=== PATIENT | female | born 2000 | race Caucasian/White ===

== ENCOUNTER 2020-04-12 18:36 | Outpatient (CLI) | payer OTHER | END 2020-04-12 20:19 | disposition home or self-care (01) | LOC: GENOP 18:36 | PROVIDERS: Obstetrics & Gynecology | DX: O99.891 Other specified diseases and conditions complicating pregnancy (principal); R10.9 Unspecified abdominal pain; M54.9 Dorsalgia, unspecified; Z3A.26 26 weeks gestation of pregnancy | CPT/HCPCS: 80307; G0463 ==

== ENCOUNTER 2020-06-18 21:04 | Outpatient (CLI) | payer OTHER | END 2020-06-18 23:25 | disposition home or self-care (01) | LOC: GENOP 21:04 | DX: O99.891 Other specified diseases and conditions complicating pregnancy (principal); R42 Dizziness and giddiness; R51.9 Headache, unspecified; H53.9 Unspecified visual disturbance; Z3A.36 36 weeks gestation of pregnancy | CPT/HCPCS: G0463 ==

== ENCOUNTER 2020-07-09 16:24 | Inpatient (IN) | payer OTHER ==
[~2020-07-09] VITALS: Ht 167.6 cm; Wt 85.7 kg
[2020-07-09 17:04] LABS: RED BLOOD COUNT 4.4 M/UL (4.00-5.10); WHITE BLOOD COUNT 12.8 K/UL (4.5-11.0)
[2020-07-09] MEDS ORDERED: RA PRENATAL TA1 EACH PO (17:52)
[2020-07-10] MEDS ORDERED: COLACE 100MG C100 MG PO (14:32)
[2020-07-10] MEDS ORDERED: IBUPROFEN600 MG PO (14:32)
[2020-07-11 06:27] LABS: HEMOGLOBIN 10.7 gm/dl (12.3-15.3)
== END 2020-07-12 17:33 | disposition home or self-care (01) | DRG 807 ==
LOC: GENOP 16:24 → OB 16:42
PROVIDERS: Obstetrics & Gynecology; ADMIT Obstetrics & Gynecology
PROC: 0U7C7ZZ Dilation of Cervix, Via Natural or Artificial Opening (ICD-10-PCS; 2020-07-09)
PROC: 4A1HXCZ Monitoring of Products of Conception, Cardiac Rate, External Approach (ICD-10-PCS; 2020-07-09)
PROC: 10E0XZZ Delivery of Products of Conception, External Approach (ICD-10-PCS; principal; 2020-07-10)
PROC: 10907ZC Drainage of Amniotic Fluid, Therapeutic from Products of Conception, Via Natural or Artificial Opening (ICD-10-PCS; 2020-07-10)
PROC: 3E033VJ Introduction of Other Hormone into Peripheral Vein, Percutaneous Approach (ICD-10-PCS; 2020-07-10)
PROC: 0UQMXZZ Repair Vulva, External Approach (ICD-10-PCS; 2020-07-10)
DX: O70.0 First degree perineal laceration during delivery (principal); Z37.0 Single live birth; Z3A.39 39 weeks gestation of pregnancy; Z87.891 Personal history of nicotine dependence; Z20.822 Contact with and (suspected) exposure to COVID-19
CPT/HCPCS: 36415; 51702; 81001; 82800; 85014; 85018; 85025; 90471; 90715; J0595; J2590; J2795; J7120; U0003